=== PATIENT | female | born 1950 | race Caucasian/White ===

== ENCOUNTER 2016-11-12 20:17 | Emergency (ER) | payer OTHER ==
[~2016-11-12] VITALS: Ht 162.6 cm; Wt 53.0 kg
[2016-11-12 20:20] VITALS: Ht 162.6 cm; Wt 53.0 kg
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
[2016-11-12 22:05] LABS: URINE BLOOD (Dip) POC Trace-intact (NEGATIVE)
--- NOTE | 2016-11-12 22:20 | RADRPT ---
PROCEDURE: Chest. CLINICAL INDICATION: Shortness of breath. TECHNIQUE: PA and Lateral views of the chest were obtained. COMPARISON: None. FINDINGS: The cardiac silhouette is within normal limits. The aortic arch is unremarkable. There is mild bibas ilar atelectasis. There is no focal consolidation, vascular congestion or pleural effusion. There is no pneumothorax. The osseous structures are grossly intact. IMPRESSION: Mild bibasilar atelectasis. .Baudilio Vicente MD, MD Date Time Electronically viewed and signed by .Baudilio Vicente MD, on 11/12/2016 22:19 .T/
--- NOTE | 2016-11-12 22:22 | RADRPT ---
PROCEDURE: Cervical spine. CLINICAL INDICATION: Neck pain. TECHNIQUE: 4 views including AP, lateral and odontoid views of the cervical spine were performed. The images were reviewed on a PACS workstation. COMPARISON: None. FINDINGS: There is no acute fracture identified. There is mild 2 mm AP diameter degenerative anterolisthesis o f C7 on T1. Cervical vertebral body heights are within normal limits. There is moderate loss of dis k height and C4-C5, C5-C6 and C6-C7 with small anterior marginal osteophytes present. There is mild loss of disk height at C3-C4. The visualized dens and lateral masses are unremarkable. There are m ultilevel facet degenerative changes. Prevertebral soft tissues are unremarkable. IMPRESSION: No acute fracture identified. Multilevel mild to moderate degenerative disk disease. Mild degenerative anterolisthesis of C7 on T1. .Baudilio Vicente MD, MD Date Time Electronically viewed and signed by .Bauidlio Vicente MD, MD on 11/12/2016 22:21 .T/
[2016-11-12] MEDS ORDERED: IBUP-1542 PO (22:29)
[2016-11-12] MEDS ORDERED: CYCL-319 PO (22:29)
[2016-11-12] MEDS ORDERED: HYDR-906 PO (22:29)
== END 2016-11-12 22:55 | disposition home or self-care (01) ==
LOC: FTE 20:17
DX: S13.9XXA Sprain of joints and ligaments of unspecified parts of neck, initial encounter (principal); S20.219A Contusion of unspecified front wall of thorax, initial encounter; V43.52XA Car driver injured in collision with other type car in traffic accident, initial encounter; Y92.410 Unspecified street and highway as the place of occurrence of the external cause
CPT/HCPCS: 71020; 72040; 81003